=== PATIENT | male | born 1955 | race Caucasian/White ===

== ENCOUNTER 2018-08-30 15:26 | Emergency (ER) | payer OTHER ==
--- NOTE | 2018-08-30 16:07 | EDM.PDOC ---
"<Pancho Jara - Last Filed: 08/30/18 18:02> ED HPI GENERAL MEDICAL PROBLEM - General Chief Complaint: General Stated Complaint: BLOOD CLOT? [id number] Time Seen by Provider: 08/30/18 16:01 Source of Information: Reports: Patient History Limitations: Reports: No Limitations - History of Present Illness INITIAL COMMENTS - FREE TEXT/NARRATIVE: Patient has been having a pea size lump in his leg on and off for 2-3 weeks. He went to the chiropractor today and they felt the lump in the back of his right calf, chiropractor told him it might be a blood clot and he should get it checked out. Lump is hard and can move around. It's painful, but there is no erythema or swelling. The pain feels stabby when pushing on it, but dull ache when he's just laying there. The pain shoots down the back of his leg to his ankle. Patient says he takes medications for high BP and high cholesterol. He used to smoke, but quit 30 years ago. Quality: Reports: Ache, Sharp Associated Symptoms: Denies: Chest Pain, Nausea/Vomiting, Shortness of Breath Right Lower Leg Pain Score (Numeric/FACES): 2 - Related Data Allergies Allergy/AdvReac Type Severity Reaction Status Date / Time No Known Allergies Allergy Verified 08/30/18 15:35 Past Medical History HEENT History: Reports: Impaired Vision Cardiovascular History: Reports: High Cholesterol Social & Family History - Tobacco Use Smoking Status *Q: Former Smoker Used Tobacco, but Quit: Yes Month/Year Tobacco Last Used: 30 years - Caffeine Use Caffeine Use: Reports: Coffee - Recreational Drug Use Recreational Drug Use: No ED ROS GENERAL - Review of Systems Review Of Systems: See Below Respiratory: Reports: No Symptoms. Denies: Shortness of Breath Cardiovascular: Reports: No Symptoms. Denies: Chest Pain, Claudication, Edema, Palpitations GI/Abdominal: Reports: No Symptoms : Reports: No Symptoms Musculoskeletal: Reports: Leg Pain (see HPI) Skin: Reports: No Symptoms ED EXAM, GENERAL - Physical Exam Exam: See Below Exam Limited By: No Limitations General Appearance: Alert, WD/WN, No Apparent Distress Respiratory/Chest: No Respiratory Distress, Lungs Clear, Normal Breath Sounds, No Accessory Muscle Use, Chest Non-Tender Cardiovascular: Normal Peripheral Pulses, Regular Rate, Rhythm, No Edema, No Gallop, No JVD, No Murmur, No Rub GI/Abdominal: Normal Bowel Sounds, Soft, Non-Tender, No Organomegaly, No Distention, No Abnormal Bruit, No Mass Extremities: Normal Inspection, Normal Range of Motion, No Pedal Edema, Vinicius's Sign (positive on right; negative on left.). No: Increased Warmth, Mottled, Redness Neurological: Alert, Oriented, No Motor/Sensory Deficits Skin Exam: Warm, Dry, Intact, Normal Color, No Rash Course - Vital Signs Last Recorded V/S: Last Vital Signs Temp 37.0 C 08/30/18 15:36 Pulse 63 08/30/18 15:36 Resp 16 08/30/18 15:36 BP 148/66 H 08/30/18 15:36 Pulse Ox 98 08/30/18 15:36 - Orders/Labs/Meds Orders: Active Orders 24 hr Category Date Time Status Venous Doppler Lwr Ext Rt [US] Urgent Exams 08/30/18 16:34 Taken Labs: U/S obtained was Departure - Departure Time of Disposition: 18:02 Disposition: Home, Self-Care 01 Condition: Good Clinical Impression: Right calf pain - Discharge Information *PRESCRIPTION DRUG MONITORING PROGRAM REVIEWED*: Not Applicable *COPY OF PRESCRIPTION DRUG MONITORING REPORT IN PATIENT [place]CO[place]: Not Applicable Forms: ED Department Discharge Additional Instructions: F/u in clinic next week if lump and pain persist. Discussed possibility of the coming and going bump being a lymph node. Watch for erythema, swelling or any sores on the right. - My Orders Last 24 Hours: My Active Orders 08/30/18 16:34 Venous Doppler Lwr Ext Rt [US] Urgent - Assessment/Plan Last 24 Hours: My Active Orders 08/30/18 16:34 Venous Doppler Lwr Ext Rt [US] Urgent <Mi Turcios - Last Filed: 08/30/18 18:08> Past Medical History - Past Health History Medical/Surgical History: Denies Medical/Surgical History Social & Family History - Family History Family Medical History: Noncontributory - Living Situation & Occupation Living situation: Reports: Occupation: Employed Course - Radiology Interpretation Free Text/Narrative:: [facility] Final Radiology Report Call: [phone] assistance Online chat: [email or web address] Name: JUAN NAIK Age: 63Years M Date: 08/30/2018 SSN: -- : 1955 Study: US DUPLEX EXTREM VEINS [email or web address] Requesting Physician: MI TURCIOS Images: 29 Addl Studies: Provided Clinical History: Contrast: Without Contrast Medium: Contrast Amount: Contrast Method: Page 1 of 2 EXAM: US Duplex Right Lower Extremity Veins, Limited EXAM DATE/TIME: 08/30/2018 4:53 PM CLINICAL HISTORY: 63 years old, male; Pain; Other: RT lat calf TECHNIQUE: Imaging protocol: Real-time Duplex ultrasound of the Right Lower Extremity with 2-D phillips scale, color Doppler flow and spectral waveform analysis. Limited exam was focused on the right lower extremity veins. COMPARISON: No relevant prior studies available. FINDINGS: Right deep veins: Unremarkable. The common femoral, femoral, proximal profunda femoral and popliteal veins are patent without thrombus. Normal Doppler waveforms. Normal compressibility and/or augmentation response. Right superficial veins: Unremarkable. Saphenofemoral junction is patent without thrombus. Soft tissues: Unremarkable. IMPRESSION: No acute findings. No evidence of deep vein thrombosis. Thank you for allowing us to participate in the care of your patient. JUAN NAIK | Final Radiology Report CONFIDENTIALITY STATEMENT This report is intended only for use by the referring physician, and only in accordance with law. If you received this in error, call [phone]. Page 2 of 2 Dictated and Authenticated by: Geo Salinas DO 08/30/2018 5:54 PM Central Time ([place] & [place])"
== END 2018-08-30 18:03 | disposition home or self-care (01) ==
LOC: DL.ED 15:26
DX: M79.661 Pain in right lower leg (principal); Z87.891 Personal history of nicotine dependence
CPT/HCPCS: 93971; 99283-25